=== PATIENT | male | born 1980 ===

== ENCOUNTER 2017-04-29 07:13 | Emergency (ER) | payer MEDICAID, OTHER ==
[2017-04-29 07:16] VITALS: BMI 35.5
[2017-04-29 07:22] VITALS: RESP 18; TEMP 97.9
--- NOTE | 2017-04-29 07:35 | ED PDOC ---
Arrival/HPI - General Chief Complaint: Chest Pain Time Seen by Provider: 04/29/17 07:35 Historian: Patient - History of Present Illness Narrative History of Present Illness (Text): 04/29/17 11:54 pt p/w + 2-3 days episode of epigastric/chest region pain, worsening today; pt states + mild nausea, no fever/chills/sweats, no sob/palpitations, no abd pain, no vomiting, no numbness/tingling, no urinary/bowel changes, no bleeding, no fall/trauma/sick contact, no travel; pt states no new foods, no other complaints ; pt denied loc, no lightheadedness; pt is here for further eval; pt's without other complaints. Time/Duration: < week Symptom Onset: Sudden Symptom Course: Unchanged Quality: Cramping Severity Level: 7, Severe Activities at Onset: Rest Context: Home Past Medical History - Provider Review Nursing Documentation Reviewed: Yes - Travel History Have you recently traveled outside [place] w/in the past 3 mons?: No - Past History Past History: No Previous - Psychiatric Hx Substance Use: No - Suicidal Assessment Feels Threatened In Home Enviroment: No Family/Social History - Physician Review Nursing Documentation Reviewed: Yes Family/Social History: No Known Family HX Smoking Status: Heavy Smoker > 10 Cigarettes Daily Hx Alcohol Use: No Hx Substance Use: No Hx Substance Use Treatment: No Allergies/Home Meds Allergies/Adverse Reactions: Allergies No Known Allergies Allergy (Verified 11/13/14 21:58) Review of Systems - Physician Review All systems were reviewed & negative as marked: Yes - Review of Systems Constitutional: Normal Eyes: Normal ENT: Normal Respiratory: Normal Cardiovascular: Chest Pain Gastrointestinal: Normal Musculoskeletal: Normal Skin: Normal Neurological: Normal Endocrine: Normal Hemo/Lymphatic: Normal Psychiatric: Normal Physical Exam Vital Signs Reviewed: Yes Vital Signs Temp Pulse Pulse Resp BP Pulse Ox 04/29/17 08:49 55 L 18 145/80 96 04/29/17 07:26 70 04/29/17 07:18 97.9 F 83 18 152/91 H 99 Temperature: Afebrile Blood Pressure: Hypertensive Pulse: Regular Respiratory Rate: Normal Appearance: Positive for: Well-Appearing, Uncomfortable Pain Distress: None Mental Status: Positive for: Alert and Oriented X 3 - Systems Exam Head: Present: Atraumatic, Normocephalic Pupils: Present: PERRL, Other (no nystamgus, no photophobia, sclera anicteric) Extroacular Muscles: Present: EOMI Conjunctiva: Present: Normal Ears: Present: Normal Mouth: Present: Moist Mucous Membranes, Normal Teeth Pharnyx: Present: Normal Nose (External): Present: Atraumatic Nose (Internal): Present: Normal Inspection Neck: Present: Normal Range of Motion, Trachea Midline. No: MIDLINE TENDERNESS Respiratory/Chest: Present: Clear to Auscultation, Good Air Exchange Cardiovascular: Present: Regular Rate and Rhythm, Normal S1, S2 Abdomen: Present: Normal Bowel Sounds, Other (well nourished male, faint mid epigastric tenderness, no ennis's sign, no mcburney's point tenderness, no masses/rebound/guarding/rigidity). No: Peritoneal Signs, Rebound, McBurney's Point Tender, Rovsing's Sign Present Back: Present: Normal Inspection. No: Midline Tenderness Upper Extremity: Present: Normal Inspection, Normal ROM, NORMAL PULSES, Neurovascularly Intact, Capillary Refill < 2s Lower Extremity: Present: Normal Inspection, NORMAL PULSES, Normal ROM, Capillary Refill < 2 s. No: CALF TENDERNESS Neurological: Present: GCS=15, CN II-XII Intact, Speech Normal Skin: Present: Warm, Other (cap refill < 1sec, no ulcerations, no petechiae) Psychiatric: Present: Alert, Oriented x 3, Normal Insight, Normal Concentration Medical Decision Making ED Course and Treatment: 04/29/17 07:45 Impression: atypical/right sided chest pain i have consider all the differential diagnosis regarding pt's chief medical complaints/clinical findings, including but are not limited to: right atypical chest pain, unlikely ACS; billary pathology, unlikely infectious, r/o PNA, unlikely PTX/rib fx A/P: atypical right chest pain - labs - iv - xray - ekg - us - observe - supportive care 04/29/2017 08:44 Abdominal Ultrasound FINDINGS: LIVER: Measures 15.2 cm. Normal echogenicity of the liver parenchyma. No mass. No intrahepatic bile duct dilatation. GALLBLADDER: There are no gallstones, wall thickening or pericholecystic fluid. The sonographic Ennis's sign is negative. . COMMON BILE DUCT: Measures 2.7 mm. No stones. No dilatation. PANCREAS: There is fatty replacement of the pancreas. No mass. No ductal dilatation. RIGHT KIDNEY: Measures 12.5cm. Normal echogenicity. No calculus, mass, or hydronephrosis. LEFT KIDNEY: Measures 11.8cm. Normal echogenicity. No calculus, mass, or hydronephrosis. There is a 3.7 x 3.6 x 4.2 cm simple cyst in the upper pole SPLEEN: Normal in size and contour. No mass. AORTA: No aneurysmal dilatation. IVC: Unremarkable. OTHER FINDINGS: None. IMPRESSION: No cholelithiasis or biliary dilatation. Dictator: Graciela Echevarria MD 04/29/2017 09:02 Chest X-ray IMPRESSION: No focal consolidation, significant pleural effusion, or definite pneumothorax identified. Dictator: Brandi Langston MD 04/29/17 11:47 pt felt improved pt states pain subsided pt's vital signs are stabilized pt is made aware of his medical results pt is encouraged bland diet pt is encouraged no smoking/drinking alcohol pt is encourged hydration pt will f/u as directed pt will be discharged home Reassessment Condition: Re-examined - Lab Interpretations Lab Results: 04/29/17 07:20 04/29/17 07:20 Lab Results 04/29/17 09:36: Urine Color Yellow, Urine Appearance Clear, Urine pH 7.0, Ur Specific [place] 1.015, Urine Protein Negative, Urine Glucose (UA) Negative, Urine Ketones Negative, Urine Blood Negative, Urine Nitrate Negative, Urine Bilirubin Negative, Urine Urobilinogen 0.2, Ur Leukocyte Esterase Negative 04/29/17 07:20: Sodium 143, Potassium 4.0, Chloride 104, Carbon Dioxide 29, Anion Gap 14, BUN 14, Creatinine 0.8, Est GFR ( Amer) > 60, Est GFR (Non- Af Amer) > 60, Random Glucose 94, Calcium 9.8, Total Bilirubin 0.6, AST 36, ALT 64 H, Alkaline Phosphatase 73, Total Protein 7.0, Albumin 4.3, Globulin 2.7, Albumin/Globulin Ratio 1.6, Lipase 99 04/29/17 07:20: WBC 9.1, RBC 5.40, Hgb 15.9, Hct 46.8, MCV 86.7, MCH 29.4, MCHC 34.0, RDW 13.0, Plt Count 206, MPV 11.0, Gran % 71.8 H, Lymph % (Auto) 20.3 L, [place] % (Auto) 5.9, Eos % (Auto) 1.6, Baso % (Auto) 0.4, Gran # 6.54 H, Lymph # 1.9, [place] # 0.5, Eos # 0.2, Baso # 0.04 I have reviewed the lab results: Yes Interpretation: All labs normal - RAD Interpretation Radiology Orders: 04/29/17 07:41 ABDOMEN COMPLETE [US] Stat 04/29/17 07:44 CHEST TWO VIEWS (PA/LAT) [RAD] Stat Bail Bond Agent: Radiologist - EKG Interpretation EKG Interpretation (Text): 04/29/17 07:47 NSR at 70 bpm, normal axis, no ectopy, inverted T In leads III, no st changes, NORMAL EKG otherwise; no old ekg to compare with 04/29/17 07:49 Interpreted by ED Physician: Yes Type: 12 lead EKG Comparison: No previous EKG avail. - Medication Orders Current Medication Orders: Discontinued Medications Al Hydrox/Mg Hydrox/Simethicone (Maalox Plus 30 Ml) 30 ml PO STAT STA Stop: 04/29/17 07:44 Last Admin: 04/29/17 07:56 Dose: 30 ml Aspirin (Aspirin) 325 mg PO STAT STA Stop: 04/29/17 07:46 Last Admin: 04/29/17 07:52 Dose: 325 mg Famotidine (Pepcid) 20 mg IVP STAT STA Stop: 04/29/17 07:42 Last Admin: 04/29/17 07:56 Dose: 20 mg IVP Administration Document 04/29/17 07:56 [email or web address] (Rec: 04/29/17 07:56 [email or web address] [id number]) Charges for Administration # of IVP Administrations 1 Lactated Ringer's 500 ml/ (Lactated Ringer's) 1,500 mls @ 1,000 mls/hr IV BOLUS STA Stop: 04/29/17 09:10 Last Admin: 04/29/17 07:57 Dose: 1,000 mls/hr eMAR Start Stop Document 04/29/17 07:57 [email or web address] (Rec: 04/29/17 07:57 [email or web address] [id number]) Intravenous Solution Start Date 04/29/17 Start Time 07:57 End Date 04/29/17 Ketorolac Tromethamine (Toradol) 30 mg IVP STAT STA Stop: 04/29/17 07:42 Last Admin: 04/29/17 07:56 Dose: 30 mg MAR Pain Assessment Document 04/29/17 07:56 [email or web address] (Rec: 04/29/17 07:56 [email or web address] [id number]) Pain Reassessment Is this a pain reassessment? No Sleep Is patient sleeping during reassessment? No Presence of Pain Presence of Pain Yes Pain Scale Used Pain Scale Used Numeric Location Pain Location Body Site Chest Description Description Constant Intensity of Pain at present 6 Pain Behavior Facial Grimacing Aggravating Factors Changing Position Alleviating Factors/Management Position Change Techniques Alleviating Factors Medication IVP Administration Document 04/29/17 07:56 [email or web address] (Rec: 04/29/17 07:56 [email or web address] [id number]) Charges for Administration # of IVP Administrations 1 Lidocaine HCl (Lidocaine 2% Viscous) 15 ml MM STAT STA Stop: 04/29/17 07:44 Last Admin: 04/29/17 07:56 Dose: 15 ml Metoclopramide HCl (Reglan) 10 mg IVP STAT STA Stop: 04/29/17 07:42 Last Admin: 04/29/17 07:56 Dose: 10 mg IVP Administration Document 04/29/17 07:56 [email or web address] (Rec: 04/29/17 07:56 [email or web address] [id number]) Charges for Administration # of IVP Administrations 1 Disposition/Present on Arrival - Present on Arrival Any Indicators Present on Arrival: No History of DVT/PE: No History of Uncontrolled Diabetes: No Urinary Catheter: No History of Decub. Ulcer: No History Surgical Site Infection Following: None - Disposition Have Diagnosis and Disposition been Completed?: Yes Diagnosis: Acute epigastric pain, Atypical chest pain Disposition: HOME/ ROUTINE Disposition Time: 11:48 Patient Plan: Discharge Condition: STABLE Discharge Instructions (ExitCare): Chest Pain (ED), Epigastric Pain (ED) Print Language: YAKUT Additional Instructions: Make sure to see your doctor in 1-2 days DRINK PLENTY OF FLUIDS BLAND DIET IS ENCOURAGED NO SMOKING NO DRINKING ALCOHOL AVOID SPICY/fatty foods take your medications as prescribed RETURN TO ED IF worse pain, cant breath, persistent vomiting, high fever >101- 102 for hours, altered behavior, unable to urinate, heavy/persistent bleeding, passing out, chest pain, or other medical emergencies Prescriptions: Aluminum Hydroxide/Magnesium [Maalox Plus 30 ml] 30 ml PO QID #1 bottle Famotidine [Pepcid] 20 mg PO BID #30 tab [facility] - Follow up with primary Forms: [employer] ([place]), WORK NOTE
[2017-04-29] MEDS ORDERED: Lactated Ringer's 500 ML in Lactated Ringer's 1,000 ML IV STA (07:41)
[2017-04-29] MEDS ORDERED: Alum-Mag Hydrox-Simethicone Susp (30 mL) PO STA (07:43)
[2017-04-29 07:57] LABS: BASO # 0.04 K/mm3 (0.0-2.0); BASO % 0.4 % (0.0-3.0); EOS # 0.2 (0.0-0.7); EOS % 1.6 % (1.5-5.0); GRAN # 6.54 (1.4-6.5); GRAN % 71.8 % (50.0-68.0); HEMOGLOBIN 15.9 g/dL (14.0-18.0); LYMPH # 1.9 (1.2-3.4); LYMPH % 20.3 % (22.0-35.0); MEAN CELL VOLUME 86.7 fl (80.0-105.0); MEAN CORPUSCULAR HEMOGLOBIN 29.4 pg (25.0-35.0); MONO # 0.5 (0.1-0.6); MONO % 5.9 % (1.0-6.0); RBC 5.4 10^6/uL (3.5-6.1); WHITE BLOOD COUNT 9.1 10^3/ul (4.5-11.0)
[2017-04-29 08:14] LABS: ALB/GLOB RATIO 1.6 (1.1-1.8); ALBUMIN 4.3 g/dL (3.0-4.8); ALT/SGPT 64 U/L (7-56); AST/SGOT 36 U/L (17-59); BLOOD UREA NITROGEN 14 mg/dL (7-21); CALCIUM 9.8 mg/dL (8.4-10.5); GFR AFRICAN-AMERICAN > 60; GFR NON-AFRICAN AMERICAN > 60; LIPASE 99 U/L (23-300)
--- NOTE | 2017-04-29 08:45 | US ---
HISTORY: Right upper abd pain, no trauma, r/o billary path COMPARISON: None. TECHNIQUE: Grayscale imaging was performed. FINDINGS: LIVER: Measures 15.2 cm. Normal echogenicity of the liver parenchyma. No mass. No intrahepatic bile duct dilatation. GALLBLADDER: There are no gallstones, wall thickening or pericholecystic fluid. The sonographic Ennis's sign is negative. . COMMON BILE DUCT: Measures 2.7 mm. No stones. No dilatation. PANCREAS: There is fatty replacement of the pancreas. No mass. No ductal dilatation. RIGHT KIDNEY: Measures 12.5cm. Normal echogenicity. No calculus, mass, or hydronephrosis. LEFT KIDNEY: Measures 11.8cm. Normal echogenicity. No calculus, mass, or hydronephrosis. There is a 3.7 x 3.6 x 4.2 cm simple cyst in the upper pole SPLEEN: Normal in size and contour. No mass. AORTA: No aneurysmal dilatation. IVC: Unremarkable. OTHER FINDINGS: None. IMPRESSION: No cholelithiasis or biliary dilatation.
--- NOTE | 2017-04-29 09:04 | RAD ---
HISTORY: right chest pain, no trauma, recent coughing COMPARISON: None available. TECHNIQUE: Chest PA and lateral FINDINGS: Examination limited by habitus. LUNGS: No focal consolidation. Please note that chest x-ray has limited sensitivity for the detection of pulmonary masses. PLEURA: No significant pleural effusion identified. No definite pneumothorax . CARDIOVASCULAR: The cardiomediastinal silhouette appears within normal limits of size. OSSEOUS STRUCTURES: No acute osseous abnormality identified. VISUALIZED UPPER ABDOMEN: Unremarkable. OTHER FINDINGS: None. IMPRESSION: No focal consolidation, significant pleural effusion, or definite pneumothorax identified.
[2017-04-29 09:47] LABS: URINE BILIRUBIN NEGATIVE (NEGATIVE); URINE BLOOD NEGATIVE (NEGATIVE); URINE GLUCOSE (UA) NEGATIVE (NEGATIVE); URINE LEUKOCYTE ESTERASE NEGATIVE Leu/uL (NEGATIVE); URINE NITRATE NEGATIVE (NEGATIVE); URINE PROTEIN NEGATIVE mg/dL (<30 mg/dL); URINE UROBILINOGEN 0.2 E.U./dL (<1 E.U./dL)
[2017-04-29 09:54] LABS: URINE APPEARANCE CLEAR (CLEAR); URINE COLOR YELLOW (YELLOW)
[2017-04-29 11:58] VITALS: BP 139/88; PULSE 59; O2SAT 99
--- NOTE | 2017-04-29 18:06 | CARD ---
APPROVED REPORT EKG Measurement Heart [id number] [id number] <Conclusion> Normal sinus rhythm Normal ECG
== END 2017-04-29 11:58 | disposition home or self-care (01) ==
LOC: ED 07:13
DX: R07.89 Other chest pain (principal); R10.13 Epigastric pain
CPT/HCPCS: 71046; 76700; 80053; 81003; 83690; 85025; 93005; 96374; 96375; 99283; J1885; J2765; J7120

== ENCOUNTER 2017-10-08 15:55 | Emergency (ER) | payer MEDICAID, OTHER ==
[2017-10-08 15:55] VITALS: BMI 35.5
[2017-10-08] MEDS ORDERED: Lidocaine 1% Inj (20ml) IJ STA (16:14)
[2017-10-08] MEDS ORDERED: TDAP Vaccine 0.5 mL Syr IM ONE (16:14)
--- NOTE | 2017-10-08 16:18 | ED PDOC ---
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 hand thumb laceration x 30 minutes. Pt. stated that he was using the knife to cut about 1 hour ago, accidentally cut the lt. thumb region, stated that the lt. hand thumb feels the same with no change in sensation or movement difficulty compared with prior injury today but admits he has chronic lt. thumb unable to flex completely prior to this injury. Pt. has no other medical or psychological complaints. Past Medical History - Provider Review Nursing Documentation Reviewed: Yes - Past History Past History: No Previous - Cardiac Hx Cardiac Disorders: Yes Hx Hypertension: Yes - Pulmonary Hx Respiratory Disorders: No - Neurological Hx Neurological Disorder: No - HEENT Hx HEENT Disorder: No - Renal Hx Renal Disorder: No - Endocrine/Metabolic Hx Endocrine Disorders: No - Hematological/Oncological Hx Blood Disorders: No - Integumentary Hx Dermatological Disorder: No - Musculoskeletal/Rheumatological Hx Musculoskeletal Disorders: No - Gastrointestinal Hx Gastrointestinal Disorders: No - Genitourinary/Gynecological Hx Genitourinary Disorders: No - Psychiatric Hx Psychophysiologic Disorder: No Hx Substance Use: No - Surgical History Other/Comment: LACERATION - Suicidal Assessment Feels Threatened In Home Enviroment: No Family/Social History - Physician Review Nursing Documentation Reviewed: Yes Family/Social History: Unknown Family HX Smoking Status: Heavy Smoker > 10 Cigarettes Daily Hx Alcohol Use: No Hx Substance Use: No Hx Substance Use Treatment: No Allergies/Home Meds Allergies/Adverse Reactions: Allergies No Known Allergies Allergy (Verified 10/08/17 15:57) Review of Systems - Review of Systems Constitutional: absent: Fatigue, Fevers Eyes: absent: Vision Changes ENT: absent: Hearing Changes Respiratory: absent: SOB, Cough Cardiovascular: absent: Chest Pain Gastrointestinal: absent: Abdominal Pain, Nausea, Vomiting Skin: Laceration. absent: Rash, Pruritis, Skin Lesions, Abscess, Ulcer, Cellulitis Neurological: absent: Headache, Dizziness Psychiatric: absent: Anxiety, Depression, Suicidal Ideation Physical Exam Vital Signs Reviewed: Yes Vital Signs Temp Pulse Resp BP Pulse Ox 10/08/17 15:58 99.0 F 96 H 18 142/93 H 96 Temperature: Afebrile Blood Pressure: Hypertensive Pulse: Regular Respiratory Rate: Normal Appearance: Positive for: Well-Appearing, Non-Toxic, Comfortable Pain Distress: Mild Mental Status: Positive for: Alert and Oriented X 3 - Systems Exam Head: Present: Atraumatic, Normocephalic Pupils: Present: PERRL Extroacular Muscles: Present: EOMI Conjunctiva: Present: Normal Mouth: Present: Moist Mucous Membranes Neck: Present: Normal Range of Motion Respiratory/Chest: Present: Clear to Auscultation, Good Air Exchange. No: Respiratory Distress, Accessory Muscle Use Cardiovascular: Present: Regular Rate and Rhythm, Normal S1, S2. No: Murmurs Abdomen: No: Tenderness, Distention, Peritoneal Signs Back: Present: Normal Inspection Upper Extremity: Present: Normal Inspection, Other (Lt. hand: visible v-shaped approx. 2.5cm superficial to intermediate depth laceration with no bony tenderness and no visible foreign body, FROM except lt. hand thumb region unable to flex the MCPJ and PIPJ region which the patient stated that this is on going for years and this is not from the injury today, sensation intact, motor 5/5, +radial pulse, capillary refill < 2 seconds, neurovascular intact. ) . No: Cyanosis, Edema Lower Extremity: Present: Normal Inspection. No: Edema Neurological: Present: GCS=15, CN II-XII Intact, Speech Normal Skin: Present: Warm, Dry, Normal Color. No: Rashes Psychiatric: Present: Alert, Oriented x 3, Normal Insight, Normal Concentration Medical Decision Making ED Course and Treatment: 10/08/17 16:20 Differential: laceration vs. fracture vs. dislocatoin -xray -tdap 10/08/17 17:21 -Xray show no acute fracture or dislocation -sensation intact, motor 5/5, wound irrigated with normal saline 1000cc, clean with betadine, 1% lidocaine injected approx. 0.5cc on the laceration wound, 5-0 nylon made 6 sutures, hemostasis obtained, bacitracin and gauze dressing, sensation intact, motor 5/5, total procedure time 15 minutes, less than 2cc of blood loss, no complication during the procedure. -Discharge home with keflex, motrin, keep the dressing dry and clean for 48 hours, follow up with your own pmd and hand specialist within 2 days, sutures need to be removed by day 11-12, return to the ER for any new or worsening signs or symptoms. - RAD Interpretation Radiology Orders: 10/08/17 16:14 HAND LEFT THUMB [RAD] Stat PROCEDURE: Left Thumb radiographs. HISTORY: lt. hand thumb laceration COMPARISON: None. TECHNIQUE: AP radiograph of the left hand, as well as spot oblique and lateral images of thumb were obtained. FINDINGS: LEFT THUMB: No acute fracture. JOINTS: Normal. SOFT TISSUES: Normal. OTHER FINDINGS: None. IMPRESSION: No demonstrated fracture or dislocation. Surveying Crew Rodman: Radiologist - Medication Orders Current Medication Orders: Discontinued Medications Lidocaine HCl (Lidocaine 1% (20ml)) 1 ml IJ STAT STA Stop: 10/08/17 16:15 Last Admin: 10/08/17 16:26 Dose: 1 % Tetanus/Reduced Diphtheria/Acell Pertussis (Boostrix Vaccine Inj) 0.5 ml IM .ONCE ONE Stop: 10/08/17 16:15 Last Admin: 10/08/17 16:25 Dose: 0.5 ml Immunization Registry Document 10/08/17 16:25 OCS (Rec: 10/08/17 16:25 [email or web address] Immunization Registry Consent Date 04/29/17 - PA / MEDICAL REIMBURSEMENT SPECIALIST / Resident Statement / has reviewed & agrees with the documentation as recorded. Disposition/Present on Arrival - Present on Arrival Any Indicators Present on Arrival: No History of DVT/PE: No History of Uncontrolled Diabetes: No Urinary Catheter: No History of Decub. Ulcer: No History Surgical Site Infection Following: None - Disposition Have Diagnosis and Disposition been Completed?: Yes Diagnosis: Thumb laceration Disposition: HOME/ ROUTINE Disposition Time: 16:23 Patient Plan: Discharge Patient Problems: Current Active Problems Problem Status Onset Thumb laceration Acute Condition: GOOD Additional Instructions: -Discharge home with keflex, motrin, keep the dressing dry and clean for 48 hours, follow up with your own pmd and hand specialist within 2 days, sutures need to be removed by day 11-12, return to the ER for any new or worsening signs or symptoms. Prescriptions: Cephalexin [Keflex] 500 mg PO TID #24 capsule Ibuprofen [Motrin Tab] 600 mg PO QID PRN #30 tab PRN Reason: Other Referrals: Audi Gr III, MD [Medical Doctor] - Follow up with primary Forms: WORK NOTE
--- NOTE | 2017-10-08 17:23 | RAD ---
PROCEDURE: Left Thumb radiographs. HISTORY: lt. hand thumb laceration COMPARISON: None. TECHNIQUE: AP radiograph of the left hand, as well as spot oblique and lateral images of thumb were obtained. FINDINGS: LEFT THUMB: No acute fracture. JOINTS: Normal. SOFT TISSUES: Normal. OTHER FINDINGS: None. IMPRESSION: No demonstrated fracture or dislocation.
[2017-10-08 17:36] VITALS: BP 131/91; PULSE 90; RESP 20; TEMP 98.1; O2SAT 95
== END 2017-10-08 17:45 | disposition home or self-care (01) ==
LOC: ED 15:55
DX: S61.012A Laceration without foreign body of left thumb without damage to nail, initial encounter (principal); W26.0XXA Contact with knife, initial encounter; I10 Essential (primary) hypertension; F17.210 Nicotine dependence, cigarettes, uncomplicated; Z23 Encounter for immunization